=== PATIENT | male | born 1970 | race Two or more races ===

== ENCOUNTER 2019-05-14 00:32 | Emergency (ER) | payer OTHER ==
[~2019-05-14] VITALS: Ht 175.3 cm; Wt 97.7 kg
[2019-05-14 00:53] VITALS: BP 189/100
== END 2019-05-14 02:02 | disposition home or self-care (01) ==
LOC: EMS 00:32
DX: I10 Essential (primary) hypertension (principal); R50.9 Fever, unspecified; E11.9 Type 2 diabetes mellitus without complications; Z88.0 Allergy status to penicillin

== ENCOUNTER 2021-02-23 18:37 | Emergency (ER) | payer OTHER ==
[~2021-02-23] VITALS: Ht 175.3 cm; Wt 105.0 kg
[~2021-02-23 18:37] MED LIST: AMLO-258 PO; GLIP10 PO; METF-1211 PO; SPIR-37 PO
[2021-02-23 19:33] VITALS: BP 153/115
== END 2021-02-23 23:28 | disposition left against medical advice (07) ==
LOC: EMS 18:38
DX: M25.521 Pain in right elbow (principal); Z53.21 Procedure and treatment not carried out due to patient leaving prior to being seen by health care provider

== ENCOUNTER 2021-02-24 04:14 | Emergency (ER) | payer OTHER ==
[~2021-02-24] VITALS: Ht 175.3 cm; Wt 102.0 kg
[2021-02-24] MEDS ORDERED: IBUPROFEN 600 MG TABLET PO ONE (06:15)
[2021-02-24 07:19] VITALS: BP 148/91
== END 2021-02-24 08:10 | disposition home or self-care (01) ==
LOC: EMS 04:14
DX: M25.521 Pain in right elbow (principal); I10 Essential (primary) hypertension; E11.9 Type 2 diabetes mellitus without complications; Z88.0 Allergy status to penicillin; Z79.899 Other long term (current) drug therapy
CPT/HCPCS: 99283

== ENCOUNTER 2021-04-30 18:25 | Emergency (ER) | payer OTHER ==
[~2021-04-30] VITALS: Ht 175.3 cm; Wt 105.9 kg
[2021-04-30 20:15] LABS: GLUCOSE,POINT OF CARE 291 MG/DL (70-110)
[2021-04-30 20:50] VITALS: BP 160/86
== END 2021-04-30 21:23 | disposition home or self-care (01) ==
LOC: EMS 18:25
DX: L03.116 Cellulitis of left lower limb (principal); L03.115 Cellulitis of right lower limb; E11.65 Type 2 diabetes mellitus with hyperglycemia; I10 Essential (primary) hypertension; Z88.0 Allergy status to penicillin; Z79.84 Long term (current) use of oral hypoglycemic drugs; Z79.899 Other long term (current) drug therapy
CPT/HCPCS: 82948; 82962; 99282

== ENCOUNTER 2021-05-09 08:26 | Emergency (ER) | payer OTHER ==
[~2021-05-09] VITALS: Ht 175.3 cm; Wt 104.5 kg
[2021-05-09 08:48] VITALS: BP 153/70
[2021-05-09] MEDS ORDERED: CEPHALEXIN MONOHYDRATE 500 MG CAPSULE PO ONE (09:45)
[2021-05-09] MEDS ORDERED: DOXYCYCLINE HYCLATE 100 MG TABLET PO ONE (09:45)
[2021-05-09] MEDS ORDERED: BACITRACIN 0.9 GM PACKET OINTMENT TP ONE (09:45)
[2021-05-09] MEDS ORDERED: HYDROGEN PEROXIDE 118 ML SOLUTION TP ONE (09:45)
[2021-05-09] MEDS ORDERED: DOXY-354 PO (10:06)
[2021-05-09] MEDS ORDERED: CEPH-558 PO (10:06)
[2021-05-09] MEDS ORDERED: BACI28OI29 TP (10:07)
== END 2021-05-09 10:19 | disposition home or self-care (01) ==
LOC: EMS 08:34
DX: S89.92XA Unspecified injury of left lower leg, initial encounter (principal); S89.91XA Unspecified injury of right lower leg, initial encounter; E11.65 Type 2 diabetes mellitus with hyperglycemia; E11.621 Type 2 diabetes mellitus with foot ulcer; L97.529 Non-pressure chronic ulcer of other part of left foot with unspecified severity; L97.519 Non-pressure chronic ulcer of other part of right foot with unspecified severity; Z88.0 Allergy status to penicillin; Z79.84 Long term (current) use of oral hypoglycemic drugs; X58.XXXA Exposure to other specified factors, initial encounter; Y93.89 Activity, other specified; Y92.89 Other specified places as the place of occurrence of the external cause; Y99.8 Other external cause status
CPT/HCPCS: 82962; 99283

== ENCOUNTER 2021-05-14 21:03 | Emergency (ER) | payer OTHER ==
[~2021-05-14] VITALS: Ht 175.3 cm; Wt 104.5 kg
[~2021-05-14 21:03] MED LIST changes: +BACI28OI29 TP; +CEPH-558 PO; +DOXY-354 PO
[2021-05-14] MEDS ORDERED: FURO40 PO (21:24)
[2021-05-14] MEDS ORDERED: HYDR25TA84 PO (21:24)
[2021-05-14] MEDS ORDERED: DAPA5TAB PO (21:24)
[2021-05-14] MEDS ORDERED: GLIP10 PO (21:24)
[2021-05-14] MEDS ORDERED: ATOR40TA28 PO (21:24)
[2021-05-14] MEDS ORDERED: LISI-892 PO (21:24)
[2021-05-14 21:25] VITALS: BP 175/87
[2021-05-14] MEDS ORDERED: GABA-1216 PO (23:40)
[2021-05-14] MEDS ORDERED: CefTRIAXone SODIUM 1 GM/VIAL IM ONE (23:45)
[2021-05-14] MEDS ORDERED: LIDOCAINE/PF 1% 2 ML VIAL IM ONE (23:45)
[2021-05-14] MEDS ORDERED: OxyCODONE HCL/ACETAMINOPHEN 5-325 MG TABLET PO ONE (23:45)
== END 2021-05-15 00:05 | disposition home or self-care (01) ==
LOC: EMS 21:04
DX: E11.621 Type 2 diabetes mellitus with foot ulcer (principal); L97.519 Non-pressure chronic ulcer of other part of right foot with unspecified severity; L97.529 Non-pressure chronic ulcer of other part of left foot with unspecified severity; E78.00 Pure hypercholesterolemia, unspecified; I10 Essential (primary) hypertension; F17.210 Nicotine dependence, cigarettes, uncomplicated; Z79.84 Long term (current) use of oral hypoglycemic drugs; Z88.0 Allergy status to penicillin; Z79.899 Other long term (current) drug therapy
CPT/HCPCS: 96372; 99283; J0696; J3490

== ENCOUNTER 2021-05-28 00:18 | Emergency (ER) | payer OTHER ==
[~2021-05-28] VITALS: Ht 175.3 cm; Wt 104.5 kg
[~2021-05-28 00:18] MED LIST changes: +ATOR40TA28 PO; +DAPA5TAB PO; +FURO40 PO; +GABA-1216 PO; +HYDR25TA84 PO; +LISI-892 PO
[2021-05-28 00:21] VITALS: BP 136/76
[2021-05-28] MEDS ORDERED: DOXY-354 PO (01:10)
== END 2021-05-28 01:30 | disposition home or self-care (01) ==
LOC: EMS 00:20
DX: L97.829 Non-pressure chronic ulcer of other part of left lower leg with unspecified severity (principal); L97.819 Non-pressure chronic ulcer of other part of right lower leg with unspecified severity; E11.9 Type 2 diabetes mellitus without complications; E78.00 Pure hypercholesterolemia, unspecified; I10 Essential (primary) hypertension; F17.210 Nicotine dependence, cigarettes, uncomplicated; Z88.0 Allergy status to penicillin
CPT/HCPCS: 99283; Z7502

== ENCOUNTER 2021-06-03 15:12 | Emergency (ER) | payer OTHER ==
[~2021-06-03] VITALS: Ht 175.3 cm; Wt 108.6 kg
[2021-06-03 16:26] LABS: BASOPHILS % (AUTO) 0.6 % (0.0-2.0); HEMATOCRIT 43.2 % (41-53); HEMOGLOBIN 14.1 g/dL (13.5-17.5); LYMPHOCYTES # (AUTO) 1.1 K/uL (1.0-4.8); LYMPHOCYTES % (AUTO) 12.4 % (22.0-44.0); MEAN CORPUSCULAR HEMOGLOBIN 24.3 pg (26.0-34.0); MEAN CORPUSCULAR HGB CONC 32.6 G/dL (31.0-37.0); MEAN CORPUSCULAR VOLUME 75 fL (80-100); MONOCYTES # (AUTO) 0.5 K/uL (0.1-1.0); NEUTROPHILS # (AUTO) 6.8 K/uL (1.8-7.7); PLATELET COUNT (AUTO) 225 K/uL (150-450); RED BLOOD CELL COUNT(AUTO) 5.79 MIL/uL (4.50-5.90); RED CELL DISTRIBUTION WIDTH 16.7 % (11.5-14.5)
[2021-06-03 16:35] LABS: CALCIUM, TOTAL 9.2 mg/dL (8.8-10.5); CREATININE 1.46 mg/dL (0.60-1.30); POTASSIUM 3.9 mmol/L (3.5-5.1)
[2021-06-03 16:41] LABS: ALBUMIN 3.6 g/dL (3.4-5.0); BILIRUBIN,TOTAL 0.3 mg/dL (0.1-1.0); TOTAL PROTEIN, SERUM 7.6 g/dL (6.4-8.2)
[2021-06-03] MEDS ORDERED: CLINDAMYCIN 300 MG/D5% WATER 50 ML IV ONE (16:45)
[2021-06-03] MEDS ORDERED: HYDROmorphone 2 MG/ML VIAL IVP ONE (16:45)
[2021-06-03] MEDS ORDERED: CIPR750T17 PO (17:28)
[2021-06-03 17:31] VITALS: BP 158/88
== END 2021-06-03 18:08 | disposition home or self-care (01) ==
LOC: EMS 15:25
DX: S81.802A Unspecified open wound, left lower leg, initial encounter (principal); S81.801A Unspecified open wound, right lower leg, initial encounter; L97.929 Non-pressure chronic ulcer of unspecified part of left lower leg with unspecified severity; L97.919 Non-pressure chronic ulcer of unspecified part of right lower leg with unspecified severity; F17.210 Nicotine dependence, cigarettes, uncomplicated; E11.9 Type 2 diabetes mellitus without complications; E78.00 Pure hypercholesterolemia, unspecified; I10 Essential (primary) hypertension; Z79.899 Other long term (current) drug therapy; Z79.84 Long term (current) use of oral hypoglycemic drugs; Z88.0 Allergy status to penicillin; W18.40XA Slipping, tripping and stumbling without falling, unspecified, initial encounter; Y93.89 Activity, other specified; Y92.89 Other specified places as the place of occurrence of the external cause; Y99.8 Other external cause status
CPT/HCPCS: 36415; 80053; 82962; 85025; 96365; 96375; 99284; J1170; J3490

== ENCOUNTER 2021-07-11 20:03 | Emergency (ER) | payer OTHER ==
[~2021-07-11] VITALS: Ht 175.3 cm; Wt 104.5 kg
[~2021-07-11 20:03] MED LIST changes: -AMLO-258 PO; +ASPI-1444 PO; +CARV3 PO; -CEPH-558 PO; -DOXY-354 PO; -GLIP10 PO; +GLIP10TA10 PO; +INSLAN SQ; +LABE100T51 PO; -METF-1211 PO; +MULT-1239 PO; +TRAM50TA4 PO
[2021-07-11 20:26] VITALS: BP 125/72
[2021-07-11] MEDS ORDERED: TraMADol HCL 50 MG TABLET PO ONE (22:45)
== END 2021-07-11 23:55 | disposition left against medical advice (07) ==
LOC: EMS 20:04
DX: L97.811 Non-pressure chronic ulcer of other part of right lower leg limited to breakdown of skin (principal); L97.812 Non-pressure chronic ulcer of other part of right lower leg with fat layer exposed; E11.9 Type 2 diabetes mellitus without complications; I10 Essential (primary) hypertension; I11.0 Hypertensive heart disease with heart failure; I50.9 Heart failure, unspecified; F17.210 Nicotine dependence, cigarettes, uncomplicated; Z88.0 Allergy status to penicillin; Z79.82 Long term (current) use of aspirin; Z79.899 Other long term (current) drug therapy
CPT/HCPCS: 82962; 99283

== ENCOUNTER 2021-07-13 19:06 | Emergency (ER) | payer OTHER ==
[~2021-07-13] VITALS: Ht 167.6 cm; Wt 86.4 kg
[2021-07-13 22:26] LABS: GLUCOSE,POINT OF CARE 192 MG/DL (70-110)
[2021-07-13 22:28] LABS: BASOPHILS % (AUTO) 0.5 % (0.0-2.0); EOSINOPHILS % (AUTO) 1.1 % (1.0-6.0); HEMATOCRIT 41.1 % (41-53); HEMOGLOBIN 13.4 g/dL (13.5-17.5); LYMPHOCYTES # (AUTO) 0.9 K/uL (1.0-4.8); MEAN CORPUSCULAR HEMOGLOBIN 24.4 pg (26.0-34.0); MEAN CORPUSCULAR HGB CONC 32.7 G/dL (31.0-37.0); MEAN CORPUSCULAR VOLUME 75 fL (80-100); MONOCYTES # (AUTO) 0.5 K/uL (0.1-1.0); MONOCYTES % (AUTO) 4.5 % (2.0-9.0); NEUTROPHILS # (AUTO) 9.6 K/uL (1.8-7.7); PLATELET COUNT (AUTO) 292 K/uL (150-450); RED CELL DISTRIBUTION WIDTH 15.8 % (11.5-14.5)
[2021-07-13 22:29] LABS: NEUTROPHILS % (AUTO) 85.9 % (40.0-70.0)
[2021-07-13 22:38] LABS: CALCIUM, TOTAL 9.3 mg/dL (8.8-10.5); CREATININE 2.16 mg/dL (0.60-1.30); POTASSIUM 3.9 mmol/L (3.5-5.1)
[2021-07-13 22:40] LABS: PROTHROMBIN TIME 11.1 SEC (9.4-11.6)
[2021-07-13] MEDS ORDERED: MEROPENEM 1 GM in SODIUM CHLORIDE 0.9% 100 ML IV ONE (22:45)
[2021-07-13 22:52] LABS: ALBUMIN 3.7 g/dL (3.4-5.0); BILIRUBIN,TOTAL 0.5 mg/dL (0.1-1.0); TOTAL PROTEIN, SERUM 8.3 g/dL (6.4-8.2)
[2021-07-13] MEDS ORDERED: SODIUM CHLORIDE 0.9% 1,000 ML IV ONE (23:00)
[2021-07-13] MEDS ORDERED: MORPHINE SULFATE 2 MG/ML SYRINGE IVP ONE (23:15)
[2021-07-13 23:56] VITALS: BP 112/61
== END 2021-07-14 00:06 | disposition home or self-care (01) ==
LOC: EMS 19:06
DX: L03.116 Cellulitis of left lower limb (principal); L03.115 Cellulitis of right lower limb; I11.0 Hypertensive heart disease with heart failure; I50.9 Heart failure, unspecified; E11.9 Type 2 diabetes mellitus without complications; F17.210 Nicotine dependence, cigarettes, uncomplicated; Z88.0 Allergy status to penicillin
CPT/HCPCS: 36415; 80053; 82962; 85025; 85610; 85730; 96365; 96375; 99284; J2185; J2270; J7050

== ENCOUNTER 2021-11-15 15:15 | Inpatient (IN) | payer OTHER ==
[~2021-11-15] VITALS: Ht 167.6 cm; Wt 113.6 kg
[~2021-11-15 15:15] MED LIST changes: +TRAM-559 PO; -TRAM50TA4 PO
[2021-11-15] MEDS ORDERED: CARV25TA32 PO (15:25)
[2021-11-15] MEDS ORDERED: LOSA-381 PO (15:25)
[2021-11-15] MEDS ORDERED: SODIUM CHLORIDE 0.9% 1,000 ML IV ONE ×3 (15:45→17:15)
[2021-11-15 15:53] LABS: BASOPHILS % (AUTO) 0.7 % (0.0-2.0); EOSINOPHILS % (AUTO) 2.3 % (1.0-6.0); HEMATOCRIT 43.6 % (41-53); HEMOGLOBIN 13.7 g/dL (13.5-17.5); LYMPHOCYTES # (AUTO) 0.6 K/uL (1.0-4.8); LYMPHOCYTES % (AUTO) 13.3 % (22.0-44.0); MEAN CORPUSCULAR HEMOGLOBIN 25.2 pg (26.0-34.0); MEAN CORPUSCULAR HGB CONC 31.3 G/dL (31.0-37.0); MEAN CORPUSCULAR VOLUME 81 fL (80-100); MONOCYTES # (AUTO) 0.7 K/uL (0.1-1.0); MONOCYTES % (AUTO) 13.8 % (2.0-9.0); NEUTROPHILS # (AUTO) 3.4 K/uL (1.8-7.7); NEUTROPHILS % (AUTO) 69.9 % (40.0-70.0); PLATELET COUNT (AUTO) 133 K/uL (150-450); RED BLOOD CELL COUNT(AUTO) 5.41 MIL/uL (4.50-5.90); RED CELL DISTRIBUTION WIDTH 13.8 % (11.5-14.5)
[2021-11-15 16:08] LABS: LACTIC ACID 5.1 mmol/L (0.4-2.0)
[2021-11-15 16:09] LABS: ALANINE AMINOTRANSFERASE 30 U/L (12-78); ALBUMIN 3.3 g/dL (3.4-5.0); ALKALINE PHOSPHATASE 186 U/L (46-116); ANION GAP 9 mmol/L (8-16); ASPARTATE AMINOTRANSFERASE 19 U/L (15-37); BILIRUBIN,TOTAL 0.2 mg/dL (0.1-1.0); CALCIUM, TOTAL 8.3 mg/dL (8.8-10.5); CARBON DIOXIDE 26 mmol/L (22-29); CHLORIDE 91 mmol/L (98-107); CREATININE 1.93 mg/dL (0.60-1.30); POTASSIUM 3.5 mmol/L (3.5-5.1); SODIUM SERUM 126 mmol/L (136-145); UREA NITROGEN, BLOOD 23 mg/dL (7-18)
[2021-11-15 16:12] LABS: GLOMERULAR FILTR. RATE CALC 37 mL/min (>60)
[2021-11-15 16:30] LABS: GLUCOSE,RANDOM 720 mg/dL (70-110)
[2021-11-15] MEDS ORDERED: DEXTROSE 5%-WATER 1,000 ML IV SCH (16:45)
[2021-11-15] MEDS ORDERED: DEXTROSE 50%-WATER 25 GM/50 ML SYRINGE IVP PRN (16:45)
[2021-11-15] MEDS ORDERED: INSULIN REGULAR, HUMAN 100 UNITS in SODIUM CHLORIDE 0.9% 99 ML IV PRN ×2 (16:45)
[2021-11-15] MEDS ORDERED: INSULIN REGULAR, HUMAN 100 UNITS/ML IVP ONE (16:45)
[2021-11-15] MEDS ORDERED: ONDANSETRON HCL 4 MG/2 ML VIAL IVP PRN (17:15)
[2021-11-15 17:20] LABS: COVID AG,FIA SOURCE NASAL SWAB
[2021-11-15] MEDS ORDERED: NITROGLYCERIN 2% (1 GM=INCH) PACKET TP ONE (17:45)
[2021-11-15] MEDS ORDERED: FUROSEMIDE 20 MG/2 ML VIAL IVP ONE (17:45)
[2021-11-15 17:57] LABS: GLUCOSE,POINT OF CARE 500 MG/DL (70-110)
[2021-11-15 19:16] LABS: GLUCOSE,POINT OF CARE 396 MG/DL (70-110)
[2021-11-15 20:21] LABS: GLUCOSE,POINT OF CARE 347 MG/DL (70-110)
[2021-11-15 20:30] VITALS: BP 140/80
[2021-11-15] MEDS: DOCUSATE SODIUM 100 MG CAPSULE PO SCH (21:00)
[2021-11-15 21:30] VITALS: BP 149/87
[2021-11-15] MEDS ORDERED: MORPHINE SULFATE 2 MG/ML SYRINGE IVP PRN (21:30)
[2021-11-15 22:00] VITALS: BP 158/92
[2021-11-15 23:21] LABS: GLUCOSE,POINT OF CARE 230 MG/DL (70-110)
[2021-11-15 23:21] LABS: GLUCOSE,POINT OF CARE 224 MG/DL (70-110)
[2021-11-15 23:21] LABS: GLUCOSE,POINT OF CARE 249 MG/DL (70-110)
[2021-11-16] VITALS (9 sets, daily range): BP systolic 145–171; BP diastolic 79–109
[2021-11-16] MEDS: HEPARIN SODIUM,PORCINE 5,000 UNITS/ML VIAL SQ SCH ×3 (00:12→16:40)
[2021-11-16 02:21] LABS: GLUCOSE,POINT OF CARE 196 MG/DL (70-110)
[2021-11-16 02:21] LABS: GLUCOSE,POINT OF CARE 200 MG/DL (70-110)
[2021-11-16 02:21] LABS: GLUCOSE,POINT OF CARE 268 MG/DL (70-110)
[2021-11-16 04:11] LABS: GLUCOSE,POINT OF CARE 167 MG/DL (70-110)
[2021-11-16 04:11] LABS: GLUCOSE,POINT OF CARE 187 MG/DL (70-110)
[2021-11-16] MEDS: ACETAMINOPHEN 325 MG TABLET PO PRN ×2 (05:17→16:55)
[2021-11-16 06:07] LABS: ANION GAP 9 mmol/L (8-16); CALCIUM, TOTAL 8.4 mg/dL (8.8-10.5); CARBON DIOXIDE 24 mmol/L (22-29); CHLORIDE 102 mmol/L (98-107); GLUCOSE,RANDOM 204 mg/dL (70-110); POTASSIUM 3.5 mmol/L (3.5-5.1); SODIUM SERUM 135 mmol/L (136-145); UREA NITROGEN, BLOOD 18 mg/dL (7-18)
[2021-11-16 06:08] LABS: GLOMERULAR FILTR. RATE CALC > 60 mL/min (>60)
[2021-11-16 06:31] LABS: GLUCOSE,POINT OF CARE 208 MG/DL (70-110)
[2021-11-16 06:31] LABS: GLUCOSE,POINT OF CARE 195 MG/DL (70-110)
[2021-11-16] MEDS ORDERED: DEXTROSE 50%-WATER 25 GM/50 ML SYRINGE IVP PRN (07:15)
[2021-11-16] MEDS: FAMOTIDINE 20 MG TABLET PO SCH (07:48)
[2021-11-16] MEDS: INSULIN GLARGINE,HUM.REC.ANLOG 100 UNITS/ML SQ SCH ×2 (08:59→20:56)
[2021-11-16] MEDS: DOCUSATE SODIUM 100 MG CAPSULE PO SCH ×2 (09:00→20:50)
[2021-11-16] MEDS: CARVEDILOL 12.5 MG TABLET PO SCH ×2 (09:13→20:50)
[2021-11-16] MEDS: LOSARTAN POTASSIUM 25 MG TABLET PO SCH ×2 (09:13→20:50)
[2021-11-16 10:51] LABS: GLUCOSE,POINT OF CARE 298 MG/DL (70-110)
[2021-11-16 16:16] LABS: GLUCOSE,POINT OF CARE 292 MG/DL (70-110)
[2021-11-16] MEDS: INSULIN LISPRO 100 UNITS/ML SQ PRN ×2 (16:52→20:56)
[2021-11-17 03:25] VITALS: BP 156/93
[2021-11-17] MEDS: INSULIN LISPRO 100 UNITS/ML SQ PRN ×2 (06:18→12:27)
[2021-11-17 07:01] VITALS: BP 159/92
[2021-11-17] MEDS: LOSARTAN POTASSIUM 25 MG TABLET PO SCH (08:45)
[2021-11-17] MEDS: HEPARIN SODIUM,PORCINE 5,000 UNITS/ML VIAL SQ SCH ×2 (08:45)
[2021-11-17] MEDS: CARVEDILOL 12.5 MG TABLET PO SCH (08:45)
[2021-11-17] MEDS: INSULIN GLARGINE,HUM.REC.ANLOG 100 UNITS/ML SQ SCH (08:45)
[2021-11-17] MEDS: DOCUSATE SODIUM 100 MG CAPSULE PO SCH (08:45)
[2021-11-17] MEDS: FAMOTIDINE 20 MG TABLET PO SCH (08:45)
[2021-11-17 11:19] VITALS: BP 155/78
[2021-11-17 18:43] LABS: GLUCOMETER DEV NAME(LOC) 5N.3; GLUCOSE,POINT OF CARE 298 MG/DL (70-110)
[2021-11-17 21:20] LABS: GLUCOMETER DEV NAME(LOC) 5N.1C; GLUCOSE,POINT OF CARE 280 MG/DL (70-110)
[2021-11-17 21:22] LABS: GLUCOMETER DEV NAME(LOC) 5S.1B; GLUCOSE,POINT OF CARE 254 MG/DL (70-110)
== END 2021-11-17 15:00 | disposition home or self-care (01) | DRG 420 ==
LOC: EMS 15:17 → ICU 20:12 → 5S 11-16 11:45
PROVIDERS: ADMIT Internal Medicine; ATTEND Internal Medicine
DX: E11.00 Type 2 diabetes mellitus with hyperosmolarity without nonketotic hyperglycemic-hyperosmolar coma (NKHHC) (principal); U07.1 COVID-19; E44.0 Moderate protein-calorie malnutrition; E11.21 Type 2 diabetes mellitus with diabetic nephropathy; E11.40 Type 2 diabetes mellitus with diabetic neuropathy, unspecified; L97.919 Non-pressure chronic ulcer of unspecified part of right lower leg with unspecified severity; E87.1 Hypo-osmolality and hyponatremia; E11.622 Type 2 diabetes mellitus with other skin ulcer; E66.01 Morbid (severe) obesity due to excess calories; I11.0 Hypertensive heart disease with heart failure; I50.9 Heart failure, unspecified; I16.0 Hypertensive urgency; L97.929 Non-pressure chronic ulcer of unspecified part of left lower leg with unspecified severity; Z79.4 Long term (current) use of insulin; Z79.899 Other long term (current) drug therapy; Z68.41 Body mass index [BMI] 40.0-44.9, adult; Z87.891 Personal history of nicotine dependence; Z91.199 Patient's noncompliance with other medical treatment and regimen due to unspecified reason
CPT/HCPCS: 71045; 80048; 80053; 82009; 82962; 83036; 83605; 85025; 87081; 93005; 99291; G0378; J1644; J1815; J1940; J2270; J7050; 36415-L1; 36415-TC

== ENCOUNTER 2022-02-01 15:48 | Emergency (ER) | payer OTHER ==
[~2022-02-01] VITALS: Ht 175.3 cm; Wt 102.3 kg
[~2022-02-01 15:48] MED LIST changes: -BACI28OI29 TP; +CARV25TA32 PO; -CARV3 PO; -DAPA5TAB PO; -GLIP10TA10 PO; -INSLAN SQ; -LABE100T51 PO; -LISI-892 PO; +LOSA-381 PO; -MULT-1239 PO; -SPIR-37 PO; -TRAM-559 PO
[2022-02-01 16:12] VITALS: BP 130/86
== END 2022-02-01 18:46 | disposition left against medical advice (07) ==
LOC: EMS 16:00
DX: L97.519 Non-pressure chronic ulcer of other part of right foot with unspecified severity (principal); M79.661 Pain in right lower leg; M79.89 Other specified soft tissue disorders; Z53.21 Procedure and treatment not carried out due to patient leaving prior to being seen by health care provider

== ENCOUNTER 2023-07-15 20:00 | Emergency (ER) | payer MEDICAID ==
[~2023-07-15] VITALS: Ht 175.3 cm; Wt 98.6 kg
[~2023-07-15 20:00] MED LIST changes: +AMLO5TAB66 PO; -ASPI-1444 PO; +ASPI81TA87 PO; -ATOR40TA28 PO; +ATOR40TA71 PO; +CEPH-558 PO; +DAPA5TAB PO; -FURO40 PO; -GABA-1216 PO; +GLIP10TA9 PO; -HYDR25TA84 PO; +HYDR50TA36 PO; +INSU100I26 SQ; -LOSA-381 PO; +PHEN-947 PO; +SEMA0.258 SQ
[2023-07-15 20:27] VITALS: BP 199/93; PULSE 90; RESP 22; TEMP 98.4
[2023-07-15 21:10] LABS: APPEARANCE,URINE CLEAR (CLEAR); BILIRUBIN,URINE NEGATIVE (NEGATIVE); COLOR,URINE YELLOW (YELLOW); GLUCOSE, URINE (UA) >=1000 mg/dL (NEGATIVE); KETONES,URINE NEGATIVE (NEGATIVE); LEUKOCYTE ESTERASE ,URINE SMALL (NEGATIVE); NITRATE,URINE NEGATIVE (NEGATIVE); OCCULT BLOOD,URINE NEGATIVE (NEGATIVE); PH,URINE 5.5 (5.0-8.0); PROTEIN,URINE 30-70 mg/dL (NEGATIVE); SPECIFIC GRAVITIY, URINE 1.029 (1.003-1.030); UROBILINOGEN,URINE <=1.0 mg/dL (<=1.0)
[2023-07-15 21:20] LABS: BACTERIA,URINE None Seen /HPF (None Seen); RBC,URINE None Seen /HPF (0-2); SQUAMOUS EPITHELIAL CELL,UR Few /LPF (None Seen)
[2023-07-15] MEDS: ACETAMINOPHEN 500 MG TABLET PO ONE (23:50)
[2023-07-15] MEDS: FLUCONAZOLE 150 MG TABLET PO ONE (23:50)
[2023-07-15] MEDS: IBUPROFEN 600 MG TABLET PO ONE (23:50)
[2023-07-15] MEDS: AMOX TR/POT CLAV 875 MG/125 MG TABLET PO ONE (23:50)
[2023-07-15] MEDS ORDERED: ACET-3385 PO (23:55)
[2023-07-15] MEDS ORDERED: AMOX-457 PO (23:55)
[2023-07-16] LABS: GLUCOMETER DEV NAME(LOC) ER.7; GLUCOSE,POINT OF CARE 356 MG/DL (70-110)
== END 2023-07-16 00:03 | disposition home or self-care (01) ==
LOC: EMS 20:00
DX: N48.1 Balanitis (principal); E11.9 Type 2 diabetes mellitus without complications; I10 Essential (primary) hypertension; F17.210 Nicotine dependence, cigarettes, uncomplicated
CPT/HCPCS: 81001; 82962; 99284

== ENCOUNTER 2023-11-26 17:41 | Emergency (ER) | payer MEDICAID, OTHER ==
[~2023-11-26] VITALS: Ht 175.3 cm; Wt 100.0 kg
[~2023-11-26 17:41] MED LIST changes: +ACET-3385 PO; +AMOX-457 PO; +GLIP10TA16 PO; -GLIP10TA9 PO
[2023-11-26 17:49] VITALS: BP 207/112; PULSE 96; RESP 16; TEMP 98.3; O2SAT 100
[2023-11-26] MEDS ORDERED: CEPH-558 PO (18:30)
[2023-11-26] MEDS ORDERED: INSU100I26 SQ (18:30)
== END 2023-11-26 19:00 | disposition home or self-care (01) ==
LOC: EMS 17:41
DX: R10.30 Lower abdominal pain, unspecified (principal); L02.92 Furuncle, unspecified; E11.65 Type 2 diabetes mellitus with hyperglycemia; I10 Essential (primary) hypertension; F17.210 Nicotine dependence, cigarettes, uncomplicated; F15.90 Other stimulant use, unspecified, uncomplicated; Z91.148 Patient's other noncompliance with medication regimen for other reason
CPT/HCPCS: 82962; 99283

== ENCOUNTER 2023-12-14 15:43 | Emergency (ER) | payer OTHER ==
[~2023-12-14] VITALS: Ht 170.2 cm; Wt 100.0 kg
[~2023-12-14 15:43] MED LIST changes: -AMOX-457 PO; -PHEN-947 PO
[2023-12-14 15:50] VITALS: TEMP 97.9
[2023-12-14 17:26] LABS: BASOPHILS % (AUTO) 0.5 % (0.0-2.0); EOSINOPHILS % (AUTO) 8.8 % (1.0-6.0); HEMATOCRIT 41.9 % (41-53); HEMOGLOBIN 13.5 g/dL (13.5-17.5); LYMPHOCYTES # (AUTO) 1.3 K/uL (1.0-4.8); LYMPHOCYTES % (AUTO) 14.7 % (22.0-44.0); MEAN CORPUSCULAR HGB CONC 32.3 G/dL (31.0-37.0); MEAN CORPUSCULAR VOLUME 77 fL (80-100); MONOCYTES # (AUTO) 0.5 K/uL (0.1-1.0); MONOCYTES % (AUTO) 5.5 % (2.0-9.0); NEUTROPHILS # (AUTO) 6.1 K/uL (1.8-7.7); NEUTROPHILS % (AUTO) 70.5 % (40.0-70.0); PLATELET COUNT (AUTO) 191 K/uL (150-450); RED BLOOD CELL COUNT(AUTO) 5.42 MIL/uL (4.50-5.90); RED CELL DISTRIBUTION WIDTH 14.2 % (11.5-14.5); WHITE BLOOD COUNT (AUTO) 8.6 K/uL (4.5-11.0)
[2023-12-14 17:51] LABS: CALCIUM, TOTAL 8.9 mg/dL (8.8-10.5); CREATININE 1.42 mg/dL (0.60-1.30); POTASSIUM 3.5 mmol/L (3.5-5.1)
[2023-12-14 18:07] LABS: URIC ACID 5.9 mg/dL (2.6-7.2)
[2023-12-14 21:00] VITALS: BP 125/69; PULSE 66; RESP 16; O2SAT 97
[2023-12-14] MEDS ORDERED: FUROSEMIDE 20 MG TABLET PO ONE (22:15)
[2023-12-14] MEDS ORDERED: FURO20TA5 PO (22:22)
== END 2023-12-14 22:58 | disposition home or self-care (01) ==
LOC: EMS 15:43
DX: M79.604 Pain in right leg (principal); M79.605 Pain in left leg; E11.9 Type 2 diabetes mellitus without complications; I10 Essential (primary) hypertension; F17.210 Nicotine dependence, cigarettes, uncomplicated; F15.90 Other stimulant use, unspecified, uncomplicated; Z79.82 Long term (current) use of aspirin; Z79.84 Long term (current) use of oral hypoglycemic drugs; Z79.85 Long-term (current) use of injectable non-insulin antidiabetic drugs
CPT/HCPCS: 80048; 82962; 83880; 84550; 85025; 85379; 93970; 99284

== ENCOUNTER 2023-12-28 12:13 | Inpatient (IN) | payer OTHER ==
[2023-12-28] VITALS (7 sets, daily range): BP systolic 126–174; BP diastolic 69–106; PULSE 63–80; RESP 18–19; TEMP 97.4–97.5; O2SAT 95–98
[~2023-12-28] VITALS: Ht 175.3 cm; Wt 64.0 kg
[~2023-12-28 12:13] MED LIST changes: -CEPH-558 PO; +FURO20TA5 PO
[2023-12-28 13:15] LABS: GLUCOMETER DEV NAME(LOC) ER.7; GLUCOSE,POINT OF CARE 221 MG/DL (70-110)
[2023-12-28 13:38] LABS: BASOPHILS % (AUTO) 0.9 % (0.0-2.0); EOSINOPHILS % (AUTO) 4.6 % (1.0-6.0); HEMATOCRIT 42.3 % (41-53); HEMOGLOBIN 13.7 g/dL (13.5-17.5); LYMPHOCYTES # (AUTO) 1.1 K/uL (1.0-4.8); LYMPHOCYTES % (AUTO) 12.9 % (22.0-44.0); MEAN CORPUSCULAR HEMOGLOBIN 25.5 pg (26.0-34.0); MEAN CORPUSCULAR HGB CONC 32.3 G/dL (31.0-37.0); MEAN CORPUSCULAR VOLUME 79 fL (80-100); MONOCYTES # (AUTO) 0.5 K/uL (0.1-1.0); MONOCYTES % (AUTO) 5.3 % (2.0-9.0); NEUTROPHILS # (AUTO) 6.5 K/uL (1.8-7.7); NEUTROPHILS % (AUTO) 76.3 % (40.0-70.0); PLATELET COUNT (AUTO) 262 K/uL (150-450); RED BLOOD CELL COUNT(AUTO) 5.36 MIL/uL (4.50-5.90); RED CELL DISTRIBUTION WIDTH 14.6 % (11.5-14.5); WHITE BLOOD COUNT (AUTO) 8.5 K/uL (4.5-11.0)
[2023-12-28 13:47] LABS: CALCIUM, TOTAL 9.1 mg/dL (8.8-10.5); CREATININE 1.75 mg/dL (0.60-1.30); POTASSIUM 5.3 mmol/L (3.5-5.1)
[2023-12-28 13:55] LABS: D-DIMER 0.57 mg/L FEU (0.00-0.50)
[2023-12-28 14:00] LABS: TROPONIN I-HIGH SENSITIVITY 9510 ng/L (<76)
[2023-12-28] MEDS: ASPIRIN 81 MG CHEWABLE TABLET PO ONE (14:13)
[2023-12-28 14:51] LABS: APPEARANCE,URINE CLEAR (CLEAR); BILIRUBIN,URINE NEGATIVE (NEGATIVE); COLOR,URINE LIGHT YELLOW (YELLOW); GLUCOSE, URINE (UA) >=1000 mg/dL (NEGATIVE); KETONES,URINE NEGATIVE (NEGATIVE); LEUKOCYTE ESTERASE ,URINE MODERATE (NEGATIVE); NITRATE,URINE NEGATIVE (NEGATIVE); OCCULT BLOOD,URINE TRACE (NEGATIVE); PROTEIN,URINE 100-200,SEE CONFIRM mg/dL (NEGATIVE); SPECIFIC GRAVITIY, URINE 1.026 (1.003-1.030); UROBILINOGEN,URINE <=1.0 mg/dL (<=1.0)
[2023-12-28 15:12] LABS: BACTERIA,URINE Few /HPF (None Seen); SQUAMOUS EPITHELIAL CELL,UR Moderate /LPF (None Seen); SULFOSALICYLIC ACID,URINE 2+ (Negative)
[2023-12-28 15:24] LABS: COVID AG,FIA SOURCE NASAL SWAB
[2023-12-28] MEDS: SODIUM CHLORIDE 0.9% 1,000 ML IV ONE ×3 (15:44→18:33)
[2023-12-28] MEDS ORDERED: HEPARIN SODIUM,PORCINE 5,000 UNITS/ML VIAL IVP PRN ×2 (15:45)
[2023-12-28] MEDS ORDERED: HEPARIN SODIUM,PORCINE 5,000 UNITS/ML VIAL IVP ONE (15:45)
[2023-12-28] MEDS ORDERED: HEPARIN SODIUM 25000 UNITS/D5W 250 ML IV PRN (15:45)
[2023-12-28] MEDS: HEPARIN SODIUM,PORCINE 5,000 UNITS/ML VIAL IVP ONE (15:49)
[2023-12-28 15:52] LABS: SARS-COV2 (COVID) ANTIGEN,FIA Negative (Negative)
[2023-12-28 15:53] LABS: INFLUENZA TYPE A NEGATIVE FOR TYPE A (NEGATIVE); INFLUENZA TYPE B NEGATIVE FOR TYPE B (NEGATIVE)
[2023-12-28] MEDS: HydrALAZINE HCL 20 MG/ML VIAL IVP PRN (15:59)
[2023-12-28 16:19] LABS: TROPONIN I-HIGH SENSITIVITY > 25000 ng/L (<76)
[2023-12-28] MEDS ORDERED: MIDAZOLAM HCL 2 MG/2 ML VIAL ONE (16:42)
[2023-12-28] MEDS ORDERED: LIDOCAINE/PF 1% 30 ML VIAL ONE (16:42)
[2023-12-28] MEDS ORDERED: HEPARIN SODIUM 1000 UNITS/NS 1,000 ML ONE (16:42)
[2023-12-28] MEDS ORDERED: VERAPAMIL HCL 2.5 MG/ML 2 ML VIAL ONE (16:42)
[2023-12-28] MEDS ORDERED: NITROGLYCERIN 50 MG/D5% WATER 250 ML ONE (16:42)
[2023-12-28] MEDS ORDERED: SODIUM BICARBONATE 50 MEQ/50 ML VIAL ONE (16:42)
[2023-12-28] MEDS ORDERED: FentaNYL CITRATE PF 100 MCG/2 ML VIAL ONE (16:42)
[2023-12-28] MEDS ORDERED: IOHEXOL 300 MG/ML 100 ML VIAL ONE (16:42)
[2023-12-28] MEDS: VERAPAMIL HCL 2.5 MG/ML 2 ML VIAL IARTER ONE (17:04)
[2023-12-28] MEDS: IOHEXOL 300 MG/ML 100 ML VIAL ICOR ONE (17:05)
[2023-12-28] MEDS: FentaNYL CITRATE PF 100 MCG/2 ML VIAL IVP ONE (17:05)
[2023-12-28] MEDS: NITROGLYCERIN/D5W 50 MG/250 ML IV BOTTLE IARTER ONE (17:05)
[2023-12-28] MEDS: MIDAZOLAM HCL 2 MG/2 ML VIAL IVP ONE (17:06)
[2023-12-28] MEDS: LIDOCAINE 1% 30 ML/SOD BICARB 8.4% 4 ML SQ ONE (17:06)
[2023-12-28] MEDS: HEPARIN SODIUM 2,000 UNITS in HEPARIN SODIUM 1000 UNITS/NS 1,000 ML IARTER ONE (17:07)
[2023-12-28] MEDS: HEPARIN SODIUM,PORCINE 1,000 UNITS/ML 10 ML VIAL IARTER ONE (17:12)
[2023-12-28] MEDS: AmLODIPine BESYLATE 5 MG TABLET PO SCH (19:37)
[2023-12-28] MEDS ORDERED: MAGNESIUM HYDROXIDE SUSPENSION 30 ML UDCUP PO PRN (19:45)
[2023-12-28] MEDS ORDERED: ACETAMINOPHEN 325 MG TABLET PO PRN (19:45)
[2023-12-28] MEDS ORDERED: BISACODYL 10 MG RECTAL RECTAL SUPPOSITORY PR PRN (19:45)
[2023-12-28] MEDS ORDERED: ONDANSETRON HCL 4 MG/2 ML VIAL IVP PRN (19:45)
[2023-12-28] MEDS ORDERED: MORPHINE SULFATE 2 MG/ML SYRINGE IVP PRN (19:45)
[2023-12-28] MEDS: CARVEDILOL 25 MG TABLET PO SCH (20:47)
[2023-12-28] MEDS: DOCUSATE SODIUM 100 MG CAPSULE PO SCH (20:47)
[2023-12-28] MEDS: HydrALAZINE HCL 25 MG TABLET PO SCH (23:43)
[2023-12-29 03:33] VITALS: BP 155/98; PULSE 70; RESP 19; TEMP 97.8; O2SAT 96
[2023-12-29] MEDS: HEPARIN SODIUM,PORCINE 5,000 UNITS/ML VIAL SQ SCH (06:00)
[2023-12-29 06:42] LABS: BASOPHILS % (AUTO) 0.8 % (0.0-2.0); EOSINOPHILS % (AUTO) 6.1 % (1.0-6.0); HEMATOCRIT 39.7 % (41-53); HEMOGLOBIN 12.8 g/dL (13.5-17.5); LYMPHOCYTES # (AUTO) 1.1 K/uL (1.0-4.8); LYMPHOCYTES % (AUTO) 15.5 % (22.0-44.0); MEAN CORPUSCULAR HEMOGLOBIN 25.6 pg (26.0-34.0); MEAN CORPUSCULAR HGB CONC 32.2 G/dL (31.0-37.0); MEAN CORPUSCULAR VOLUME 80 fL (80-100); MONOCYTES # (AUTO) 0.6 K/uL (0.1-1.0); MONOCYTES % (AUTO) 8.7 % (2.0-9.0); NEUTROPHILS # (AUTO) 4.7 K/uL (1.8-7.7); NEUTROPHILS % (AUTO) 68.9 % (40.0-70.0); PLATELET COUNT (AUTO) 223 K/uL (150-450); RED BLOOD CELL COUNT(AUTO) 4.99 MIL/uL (4.50-5.90); WHITE BLOOD COUNT (AUTO) 6.9 K/uL (4.5-11.0)
[2023-12-29 07:26] LABS: CHOL/HDL RATIO 3.5 (4.2-7.3); CREATININE 1.41 mg/dL (0.60-1.30); POTASSIUM 4.7 mmol/L (3.5-5.1)
[2023-12-29 07:48] VITALS: BP 148/94; PULSE 79; RESP 19; TEMP 98; O2SAT 98
[2023-12-29 07:48] LABS: HEMOGLOBIN A1C 13.6 % (3.8-5.6)
[2023-12-29 08:10] LABS: TROPONIN I-HIGH SENSITIVITY > 25000 ng/L (<76)
[2023-12-29] MEDS: ATORVASTATIN CALCIUM 40 MG TABLET PO SCH (08:13)
[2023-12-29] MEDS: PANTOPRAZOLE SODIUM 40 MG DR TABLET PO SCH (08:14)
[2023-12-29] MEDS: HydrALAZINE HCL 50 MG TABLET PO SCH (08:21)
[2023-12-29] MEDS: ASPIRIN 81 MG DR TABLET PO SCH (08:41)
[2023-12-29] MEDS: FUROSEMIDE 20 MG/2 ML VIAL IVP SCH (11:08)
[2023-12-29 11:39] VITALS: BP 152/89; PULSE 71; RESP 19; TEMP 97.7; O2SAT 98
[2023-12-29 14:55] VITALS: BP 146/93; PULSE 73; RESP 20; TEMP 98.2; O2SAT 98
[2023-12-29 19:22] VITALS: BP 143/74; PULSE 74; RESP 19; TEMP 98.1; O2SAT 96
[2023-12-29] MEDS: HYDROCODONE/ACETAMINOPHEN 5-325 MG TABLET PO PRN (21:39)
[2023-12-29] MEDS: ZOLPIDEM TARTRATE 5 MG TABLET PO PRN (21:39)
[2023-12-29 23:15] VITALS: BP 160/97; PULSE 83; RESP 19; TEMP 98.1; O2SAT 92
[2023-12-30 03:06] VITALS: BP 153/99; PULSE 80; RESP 19; TEMP 97.5; O2SAT 98
[2023-12-30 06:42] LABS: BASOPHILS % (AUTO) 0.9 % (0.0-2.0); EOSINOPHILS % (AUTO) 5.7 % (1.0-6.0); HEMATOCRIT 39.6 % (41-53); HEMOGLOBIN 12.8 g/dL (13.5-17.5); LYMPHOCYTES # (AUTO) 1.1 K/uL (1.0-4.8); LYMPHOCYTES % (AUTO) 14.6 % (22.0-44.0); MEAN CORPUSCULAR HEMOGLOBIN 25.5 pg (26.0-34.0); MEAN CORPUSCULAR HGB CONC 32.2 G/dL (31.0-37.0); MEAN CORPUSCULAR VOLUME 79 fL (80-100); MONOCYTES # (AUTO) 0.4 K/uL (0.1-1.0); NEUTROPHILS # (AUTO) 5.3 K/uL (1.8-7.7); NEUTROPHILS % (AUTO) 72.8 % (40.0-70.0); PLATELET COUNT (AUTO) 245 K/uL (150-450); RED CELL DISTRIBUTION WIDTH 14.4 % (11.5-14.5); WHITE BLOOD COUNT (AUTO) 7.3 K/uL (4.5-11.0)
[2023-12-30 07:07] LABS: CALCIUM, TOTAL 8.8 mg/dL (8.8-10.5); CREATININE 1.68 mg/dL (0.60-1.30); POTASSIUM 4.7 mmol/L (3.5-5.1)
[2023-12-30 07:39] LABS: TROPONIN I-HIGH SENSITIVITY > 25000 ng/L (<76)
[2023-12-30 08:03] VITALS: BP 152/90; PULSE 80; RESP 19; TEMP 97.9; O2SAT 82; O2SAT 99
[2023-12-30] MEDS: LOSARTAN POTASSIUM 25 MG TABLET PO SCH (08:12)
[2023-12-30] MEDS: ISOSORBIDE DINITRATE 10 MG TABLET PO SCH (10:21)
[2023-12-30] MEDS ORDERED: LOSA-417 PO (11:03)
[2023-12-30] MEDS ORDERED: EMPA10TA3 PO (11:03)
[2023-12-30] MEDS ORDERED: FURO20TA4 PO (11:03)
[2023-12-30] MEDS ORDERED: ATOR40TA71 PO (11:03)
[2023-12-30] MEDS ORDERED: HYDR50TA37 PO (11:03)
[2023-12-30] MEDS ORDERED: ASPI-1444 PO (11:03)
[2023-12-30] MEDS ORDERED: CARV25 PO (11:03)
[2023-12-30] MEDS ORDERED: ISOS10TA16 PO (11:03)
[2023-12-30] MEDS ORDERED: AMLO-257 PO (11:03)
[2023-12-30 11:33] VITALS: BP 133/65; PULSE 68; RESP 18; TEMP 97.9; O2SAT 95
[2023-12-31] MEDS ORDERED: FUROSEMIDE 20 MG TABLET PO SCH (09:00)
[2023-12-31] MEDS ORDERED: EMPAGLIFLOZIN 10 MG TABLET PO SCH (09:00)
[2024-01-06] MEDS ORDERED: INSLAN SQ (09:21)
== END 2023-12-30 11:30 | disposition home or self-care (01) | DRG 280 ==
LOC: EMS 12:13 → EDH 16:13 → UNDOADMIN 16:13 → ICUN 16:13 → 5S 17:40
PROVIDERS: ADMIT Internal Medicine; ATTEND Internal Medicine
PROC: B2111ZZ Fluoroscopy of Multiple Coronary Arteries using Low Osmolar Contrast (ICD-10-PCS; principal; 2023-12-28)
DX: I21.4 Non-ST elevation (NSTEMI) myocardial infarction (principal); I50.23 Acute on chronic systolic (congestive) heart failure; N17.0 Acute kidney failure with tubular necrosis; I13.0 Hypertensive heart and chronic kidney disease with heart failure and stage 1 through stage 4 chronic kidney disease, or unspecified chronic kidney disease; N18.9 Chronic kidney disease, unspecified; Z20.822 Contact with and (suspected) exposure to COVID-19; F15.10 Other stimulant abuse, uncomplicated; E11.22 Type 2 diabetes mellitus with diabetic chronic kidney disease; E78.5 Hyperlipidemia, unspecified; E87.5 Hyperkalemia; F17.210 Nicotine dependence, cigarettes, uncomplicated; E87.6 Hypokalemia; Z79.82 Long term (current) use of aspirin; Z79.01 Long term (current) use of anticoagulants; Z79.899 Other long term (current) drug therapy; Z79.84 Long term (current) use of oral hypoglycemic drugs; Z79.4 Long term (current) use of insulin
CPT/HCPCS: 71045; 80048; 80061; 81001; 81002; 82550; 82962; 83036; 83880; 84484; 85025; 85379; 85610; 85730; 87086; 87804; 93005; 93306; 99285; J0360; J1644; J1940; J2250; J3010; J3490; Q9967; 36415-L1; 36415-TC; Z7610

== ENCOUNTER 2024-10-17 19:49 | Emergency (ER) | payer OTHER ==
[~2024-10-17] VITALS: Ht 175.3 cm; Wt 100.0 kg
[~2024-10-17 19:49] MED LIST changes: +AMLO-257 PO; -AMLO5TAB66 PO; +ASPI-1444 PO; -ASPI81TA87 PO; +CARV25 PO; -CARV25TA32 PO; -DAPA5TAB PO; +FURO20TA4 PO; -FURO20TA5 PO; -GLIP10TA16 PO; -HYDR50TA36 PO; +HYDR50TA37 PO; +INSLAN SQ; -INSU100I26 SQ; +ISOS10TA16 PO; +LOSA-417 PO; -SEMA0.258 SQ
[2024-10-17 20:26] VITALS: BP 202/115; PULSE 104; RESP 19; TEMP 98.4; O2SAT 98
[2024-10-17 20:58] LABS: COVID AG,FIA SOURCE NASAL SWAB
[2024-10-17 21:22] LABS: SARS-COV2 (COVID) ANTIGEN,FIA Negative (Negative)
[2024-10-17 21:23] LABS: PLATELET COUNT (AUTO) 169 K/uL (150-450); RED BLOOD CELL COUNT(AUTO) 5.99 MIL/uL (4.50-5.90); RED CELL DISTRIBUTION WIDTH 14.9 % (11.5-14.5); WHITE BLOOD COUNT (AUTO) 6.4 K/uL (4.5-11.0)
[2024-10-17 21:30] LABS: INFLUENZA TYPE A NEGATIVE FOR TYPE A (NEGATIVE); INFLUENZA TYPE B NEGATIVE FOR TYPE B (NEGATIVE)
[2024-10-17 21:34] LABS: CALCIUM, TOTAL 8.4 mg/dL (8.8-10.5); CREATININE 1.47 mg/dL (0.60-1.30); GLOMERULAR FILTR. RATE CALC 50.0 mL/min (>60); GLUCOSE,RANDOM 328.0 mg/dL (70-110); SODIUM SERUM 134.0 mmol/L (136-145); UREA NITROGEN, BLOOD 19.0 mg/dL (7-18)
== END 2024-10-17 23:27 | disposition left against medical advice (07) ==
LOC: EMS 19:49
DX: R05.9 Cough, unspecified (principal); R50.9 Fever, unspecified; Z20.822 Contact with and (suspected) exposure to COVID-19; Z53.21 Procedure and treatment not carried out due to patient leaving prior to being seen by health care provider
CPT/HCPCS: 80048; 82962; 85025; 87804